=== PATIENT | female | born 1975 | race Caucasian/White ===

== ENCOUNTER 2017-11-22 03:22 | Observation (INO) ==
--- NOTE | 2017-11-22 03:58 | Emergency Department Note ---
Disposition Clinical Impression: Hypoxemia, Intractable pain Multiple fractures of ribs of left side Qualifiers: Encounter type: initial encounter Fracture type: closed Qualified Code(s): S22.42XA - Multiple fractures of ribs, left side, initial encounter for closed fracture Pneumonia Qualifiers: Pneumonia type: due to unspecified organism Laterality: left Lung location: unspecified part of lung Qualified Code(s): J18.9 - Pneumonia, unspecified organism Disposition: Admitted As Inpatient Condition: Fair Referrals: NONE,PCP [Primary Care Provider] - Forms: ED Satisfaction Letter Time of Disposition: 06:16 General Adult HPI - General Chief complaint: ED Fall Stated complaint: fall, hit chest, TEGAN Time Seen by Provider: 11/22/17 03:34 Source: family Limitations: other - History of Present Illness Pain Scale: 10 - Related Data Home Medications Medication Instructions Recorded Confirmed FLUoxetine HCl [Prozac] 40 mg PO DAILY 11/22/17 11/22/17 Neurontin 300 mg PO TID 11/22/17 11/22/17 traZODone [TraZODone] 50 mg PO HS 11/22/17 11/22/17 Allergies Allergy/AdvReac Type Severity Reaction Status Date / Time Sulfa (Sulfonamide AdvReac Rash Verified 11/22/17 04:42 Antibiotics) Past Medical History - Past Medical History Medical history: Reports: no medical history Psychiatric history: Reports: anxiety, depression [employer]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 - Social History Smoking Status: Current every day smoker Smokeless Tobacco Status: No Alcohol use: Reports: none Drug use: Reports: none Physical Exam - General Limitations: other General appearance: alert, in no apparent distress Course Vital Signs Temperature 99.1 F 11/22/17 03:27 Pulse Rate 117 11/22/17 03:27 Respiratory Rate 30 11/22/17 03:27 Blood Pressure 104/58 11/22/17 03:27 O2 Sat by Pulse Oximetry 82 11/22/17 03:27 Temperature 99.1 F 11/22/17 03:36 Pulse Rate 105 11/22/17 05:35 Respiratory Rate 24 11/22/17 05:35 Blood Pressure 101/62 11/22/17 05:35 O2 Sat by Pulse Oximetry 94 11/22/17 05:35 Oxygen Delivery Oxygen Delivery Room Air Critical Care Time Critical Care Time: Yes Total Critical Care Time: 35 Attestation: Critical care performed: Time is exclusive of separately billable procedures. Time includes: direct patient care, patient reassessment, coordination of patient care, interpretation of data (laboratory data, radiology data, and respiratory data), review of patient's medical records, medical consultation and documentation of patient care. Procedures included in critical care time: Procedures excluded from critical care time: Attestation Statement - Attestation Attestation: I examined this patient and my medical decision-making was reviewed with the Resident Physician. I agree with the documented findings, disposition and treatment plan as described except to the extent set forth below. Patient to the ED after a fall. Patient states she fell in her bedroom against a stool and hit the left anterior chest. She is having pain and trouble breathing. On examination she is holding her chest. Rapid shallow breathing. Diminished breath sounds bilaterally. Plan. Portable chest does not show an obvious pneumo. No obvious rib fracture. We will check CT CT shows multiple rib fractures. Patient requiring IV pain control. Satting in the 80s on room air. Patient is admitted. Chest X-Ray 11/22/17 03:34 IMPRESSION: Low lung volumes with basilar opacities, favored to reflect atelectasis although superimposed aspiration and pneumonia are considerations. Tiny effusions are possible. D/ / Francesco Bacon / Francesco Bacon Interpreting Provider: Francesco Bacon Chest CT 11/22/17 03:57 IMPRESSION: Left 2nd-5th rib fractures. No pneumothorax. Basilar predominant multifocal airspace disease, suspicious for pneumonia versus aspiration sequela. Diffuse mild wall inflammation. Mild emphysema. D/ / Francesco Bacon / Francesco Bacon Interpreting Provider: Francesco Bacon
--- NOTE | 2017-11-22 04:08 | Emergency Department Note ---
Disposition Clinical Impression: Hypoxemia, Intractable pain Multiple fractures of ribs of left side Qualifiers: Encounter type: initial encounter Fracture type: closed Qualified Code(s): S22.42XA - Multiple fractures of ribs, left side, initial encounter for closed fracture Pneumonia Qualifiers: Pneumonia type: due to unspecified organism Laterality: left Lung location: unspecified part of lung Qualified Code(s): J18.9 - Pneumonia, unspecified organism Disposition: Admitted As Inpatient Condition: Fair Referrals: NONE,PCP [Primary Care Provider] - Forms: ED Satisfaction Letter Time of Disposition: 06:11 Fall HPI - General Chief Complaint: ED Fall Stated Complaint: fall, hit chest, TEGAN Time Seen by Provider: 11/22/17 03:34 Source: family Mode of arrival: ambulatory Limitations: no limitations Nursing Notes Reviewed: Yes Vital Signs Reviewed: Yes - History of Present Illness HPI Narrative: Patient is a 42-year-old female who presents to [facility] ED status post fall around 7pm into a stool. States she has extreme left-sided chest wall pain after the fall. Feel short of breath. Denies any recent cough or cold. Admits to being a daily smoker but has never been diagnosed with COPD. No abdominal pain, nausea, vomiting, fever or chills. No problems with urination or bowel movements. No other traumatic injury. Denies being on any blood thinning medications. Patient states she fell because her legs gave out on her because of her back. Patient has had a long standing history of multiple back surgeries, prior pain infusion pump, etc. States this is nothing new for her. Pt Subjective Complaint: fall Onset (ago): hour(s) Fall From: standing Place Fall Occurred: home Loss of Consciousness: none Prolonged Down Time?: no Symptoms Prior to Fall: none Context: tripped/slipped Location of injury: chest Severity: severe Quality: stabbing Associated symptoms (after fall): Reports: chest pain, shortness of breath. Denies: weakness, abdominal pain, lightheaded - Related Data Home Medications Medication Instructions Recorded Confirmed FLUoxetine HCl [Prozac] 40 mg PO DAILY 11/22/17 11/22/17 Neurontin 300 mg PO TID 11/22/17 11/22/17 traZODone [TraZODone] 50 mg PO HS 11/22/17 11/22/17 Allergies Allergy/AdvReac Type Severity Reaction Status Date / Time Sulfa (Sulfonamide AdvReac Rash Verified 11/22/17 04:42 Antibiotics) All systems ED: reviewed and negative except as stated. 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 - Social History Smoking Status: Current every day smoker Alcohol use: Reports: none Drug use: Reports: none Physical Exam - General Limitations: other General appearance: alert, in no apparent distress - Head Head exam: atraumatic, normocephalic, normal inspection - Eye Eye exam: Present: normal appearance, EOMI - ENT ENT exam: normal exam, normal oropharynx, mucous membranes moist - Neck Neck exam: Present: normal inspection - Chest Chest inspection: Present: normal inspection, symmetric chest wall rise, tenderness (L chest wall pain with palpaiton) - Respiratory Respiratory exam: Present: normal lung sounds bilaterally - Cardiovascular Cardiovascular exam: Present: normal rhythm, tachycardia, normal heart sounds - Abdominal Exam Abdominal exam: Present: soft, Non-Tender. Absent: tenderness, distention, guarding, rebound, rigidity - Extremities Exam Extremities exam: Present: normal inspection, full ROM. Absent: tenderness, pedal edema - Back Exam Back exam: Present: normal inspection, full ROM. Absent: tenderness - Neurological Exam Neurological exam: Present: alert, oriented X3 - Psychiatric Psychiatric exam: Present: normal affect, normal mood - Skin Skin exam: Present: warm, dry, intact, normal color Course Course Narrative: Patient seen and examined. Fall with her chest against the stool. Chest x-ray ordered. Patient was initially reported to be 82% on room air in triage and she was immediately brought back here for evaluation. Upon examination, she had oxygenation that went up to 90% on room air with good waveform. Patient placed on 2 L nasal cannula oxygen and improved to 92-93% Motrin ordered for pain. - Reevaluation(s) Reevaluation #1: Upon examination of the chest x-ray, there are some blurred costophrenic angles and we are unable to tell if there may be a rib fracture or not. Due to her severe pain in shortness of breath, we will go ahead and get a CT of the chest. Time: 04:13 Reevaluation #2: CT of the chest shows multiple rib fractures left 2 through 5. No signs of pneumothorax. Patient's patient has been hypoxemic and is requiring oxygen, we will admit for pain control, pulmonary toilet. Patient is still having a lot of pain currently. We will give a sub-dissociative dose of ketamine. We will add some basic labs including a CBC and BMP. We will discuss with hospitalist for admission. Time: 05:56 Reevaluation #3: Discussed with hospitalist Dr. Max who has accepted patient for admission. Time: 06:10 Vital Signs Temperature 99.1 F 11/22/17 03:27 Pulse Rate 117 11/22/17 03:27 Respiratory Rate 30 11/22/17 03:27 Blood Pressure 104/58 11/22/17 03:27 O2 Sat by Pulse Oximetry 82 11/22/17 03:27 Temperature 99.1 F 11/22/17 03:36 Pulse Rate 105 11/22/17 05:35 Respiratory Rate 24 11/22/17 05:35 Blood Pressure 101/62 11/22/17 05:35 O2 Sat by Pulse Oximetry 94 11/22/17 05:35 Oxygen Delivery Oxygen Delivery Room Air Fall - Medical Records Medical records reviewed: Yes I reviewed the patient's medical records. - Lab Data Lab results reviewed: Yes I reviewed the patient's lab results. - Radiology Data Radiology results reviewed: Yes I reviewed the patient's radiology results. Chest X-Ray 11/22/17 03:34 IMPRESSION: Low lung volumes with basilar opacities, favored to reflect atelectasis although superimposed aspiration and pneumonia are considerations. Tiny effusions are possible. D/ / Francesco Bacon / Francesco Bacon Interpreting Provider: Francesco Bacon Chest CT 11/22/17 03:57 IMPRESSION: Left 2nd-5th rib fractures. No pneumothorax. Basilar predominant multifocal airspace disease, suspicious for pneumonia versus aspiration sequela. Diffuse mild wall inflammation. Mild emphysema. D/ / Francesco Bacon / Francesco Bacon Interpreting Provider: Francesco Bacon - EKG Data EKG attestation: Yes I reviewed and interpreted this EKG. EKG results narrative: EKG done at 333 shows sinus tachycardia with a rate of [address] elevation or depression. Normal axis. Poor wandering baseline EKG.
[2017-11-22] MEDS ORDERED: Ibuprofen 600 MG TABLET PO ONE (04:11)
[2017-11-22] MEDS ORDERED: *HR* OxyCODONE/APAP 5/325 TABLET PO ONE (04:32)
[2017-11-22] MEDS ORDERED: SODIUM CHLORIDE 0.9% IVPB ONE (05:52)
[2017-11-22] MEDS ORDERED: KETAMINE IVPB ONE (05:52)
[2017-11-22] MEDS ORDERED: Levofloxacin 750 MG/150 ML 750 MG/150 ML BAG IVPB ONE (05:53)
[2017-11-22] MEDS ORDERED: Naloxone 0.4 MG/ML INJ IVP PRN (07:52)
--- NOTE | 2017-11-22 07:59 | Internal Med History&Physical ---
Date of Encounter: 11/22/17 Time of Encounter: 07:56 Internal Medicine - H&P: HPI Chief complaint: left sided chest pain secondary to fall Admitted From: Emergency Dept Plans for Post Hospital Care: Home History of present illness: Ms. Schmidt is a 42 year old female who is a background history of for smoker and multiple degenerative joint disease. Patient had a multiple falls in the past. Patient also has a background history of a anxiety/depression Last evening around 7:00 patient was getting down from the stool and was not able to maintain her balance and noted that she had a fall. Initially patient was stranded secondary to the episode. Patient never had a loss of consciousness. Patient did not had any palpitations, dizziness, nausea, vomiting, any abnormal sensation. The pain on the left side of the chest was persistently getting worse and that was the reason patient came to the hospital for further evaluation. Workup in the emergency room: Patient was evaluated in the emergency room. Basic labs were drawn. X-ray chest was done. In view of the persistent left- sided pain, she underwent CT scan of the chest which showed multiple rib fractures on the left side from second to fifth. Reason for admission: Multiple rib fractures causing excruciating pain requires narcotics for pain control. Family history: Noncontributory Past Med Surg Social Fam HX - Past Medical History Medical history: no medical history Psychiatric history: anxiety, depression - Social History Smoking Status: Current every day smoker Packs per day: 1 Smokeless Tobacco Status: No Alcohol use: none Drug use: none Internal Medicine - H&P: Meds FLUoxetine HCl [Prozac] 40 mg PO DAILY 11/22/17 [History] Neurontin 300 mg PO TID 11/22/17 [History] traZODone [TraZODone] 50 mg PO HS 11/22/17 [History] 3 Allergy/AdvReac Type Severity Reaction Status Date / Time Sulfa (Sulfonamide AdvReac Rash Verified 11/22/17 04:42 Antibiotics) All Systems PM: A 10-system review of systems was performed and is negative for pertinent findings except as documented above in the HPI. - Constitutional Constitutional: no chills, no fever(s), no night sweats - EENT Eyes: no change in vision, no discharge, no pain, no photophobia Ears: no ear discharge, no ear pain, no tinnitus Nose, mouth and throat: no dysphagia, no nasal discharge, no neck pain, no sore throat - Cardiovascular Cardiovascular ROS IM: chest pain, no diaphoresis, no dyspnea, no lightheadedness, no palpitations, no syncope - Respiratory Respiratory: no cough, no dyspnea, no wheezing, no excessive phlegm production - Gastrointestinal Gastrointestinal: no abdominal pain, no diarrhea, no hematemesis, no hematochezia, no melena, no nausea, no vomiting - Genitourinary Genitourinary: no change in urinary stream, no dysuria, no flank pain, no hematuria - Musculoskeletal Musculoskeletal ROS IM: no numbness, no tingling - Integumentary Integumentary IM: no rash, no unusual bruising - Neurological Neurological ROS: no confusion, no convulsions, no focal weakness, no numbness, no tingling, no tremor(s) - Hematologic/Lymphatic Hematologic/Lymphatic: no easy bruising - Constitutional Vitals: Temp Pulse Resp BP Pulse Ox 99.1 F 105 16 91/64 94 11/22/17 03:36 11/22/17 05:35 11/22/17 06:49 11/22/17 06:49 11/22/17 05:35 General appearance: Present: A&O X 3, pleasant, no acute distress, answers questions appropriately - Head Head exam: Present: atraumatic, normocephalic - Eye Eye exam: Present: PERRL, conjuntiva pink, sclera anicteric Pupils: Present: PERRL - Neck Neck exam general surgery: Present: supple, trachea midline. Absent: lymphadenopathy - Respiratory Respiratory exam: Present: CTAB. Absent: accessory muscle use, rales, rhonchi, wheezes - Cardiovascular Cardiovascular exam: Present: RRR, +S1, +S2. Absent: diastolic murmur, gallop, rubs, systolic murmur - GI/Abdominal GI/Abdominal exam: Present: normal bowel sounds, soft, no peritoneal signs. Absent: distended, tenderness - Extremities Exam Extremities exam: Present: warm, radial pulses palpable and symmetrical. Absent : calf tenderness, cyanotic, pedal edema - Neurological Exam Neurological exam: Present: CN II-XII intact, oriented X3, no focal deficits. Absent: pronater drift, facial droop, speech deficit - Skin Skin exam: Present: dry, intact - Assessment and plan (1) Multiple fractures of ribs of left side Current Visit: Yes Status: Acute Assessment and plan: Patient is multiple rib fractures on the left side. She has a multiple rib fractures from 2 through 5th rib ( closed) Etiology for fall is previous multiple back surgeries leading to a imbalance. Patient had a previous pain pump which was removed. Plan: Admit as observation. Pain control as discussed below. This patient needs to go back to [facility] where 3 of the multiple back surgeries were performed. I explained this at length with the patient and she verbalized understanding. I examined this patient in her room and her significant other was present during the conversation. Patient gave permission to talk about her health in front of significant other. Plan of care discussed with the patient and family members. The verbalize understanding. Qualifiers: Encounter type: initial encounter Fracture type: closed Qualified Code(s) : S22.42XA - Multiple fractures of ribs, left side, initial encounter for closed fracture (2) Pneumonia Current Visit: Yes Status: Acute Assessment and plan: Patient does have some evidence of infiltrates on the chest x-ray. We will cover that with the by mouth levofloxacin. Close monitoring of the respiratory status. Qualifiers: Pneumonia type: due to unspecified organism Laterality: left Lung location: unspecified part of lung Qualified Code(s): J18.9 - Pneumonia, unspecified organism (3) Intractable pain Current Visit: Yes Status: Acute Assessment and plan: Patient is intractable pain. We will start with the tramadol which can cover her pain scale from 4-6. We will start her on a high-dose of OxyContin which will cover her pain from 7- 10. If in spite of this medication if her pain is not under control, then we will have to use when necessary intravenous opioids (4) DVT prophylaxis Current Visit: Yes Status: Acute Assessment and plan: Heparin Medical decision making: This patient has a moderate to severe risk of worsening in spite of being on appropriate medication due to the underlying chronic comorbid conditions. - Time Spent With Patient Total time spent is greater than 50% in coordination of care (as documented) at patient's floor/unit and/or counseling patient:
[2017-11-22 08:46] LABS: Basophils % 0.2 %; Eosinophils % 0.1 %; Hematocrit 39.6 % (35.3-44.9); Hemoglobin 12.8 g/dL (11.5-15.4); Immature Granulocytes % 0.4 % (0-4); Mean Corpuscular HGB Conc 32.3 g/dL (31.6-35.5); Mean Corpuscular Hemoglobin 28.8 pg (28.0-33.3); Mean Corpuscular Volume 89.2 fL (83.0-100.0); Mean Platelet Volume 11.2 fL (9.4-12.4); Monocytes # 0.8 K/mcL (0.0-1.3); Monocytes % 6.8 %; Neutrophils # 7.3 K/mcL (1.6-8.9); Platelet Count 118 K/mcL (140-400); Red Blood Count 4.44 M/mcL (3.82-4.97); Red Cell Distribution Width 13.1 % (11.5-14.5); Segmented Neutrophils % 65.5 %
[2017-11-22] MEDS: traMADol 50 MG TABLET PO PRN ×2 (09:09→17:33)
[2017-11-22] MEDS: Gabapentin 300 MG CAPSULE PO SCH ×3 (09:09→22:53)
[2017-11-22] MEDS: FLUoxetine 20 MG CAPSULE PO SCH (09:09)
[2017-11-22 09:11] LABS: Calcium 8.6 mg/dL (8.6-10.3); Potassium 3.4 mEq/L (3.5-5.1)
[2017-11-22] MEDS: Nicotine 14 MG PATCH.TD24 TD SCH (09:48)
[2017-11-22] MEDS: *HR* OxyCODONE Immed Rel 5 MG TABLET PO PRN ×2 (12:31→22:53)
[2017-11-22] MEDS: *HR* Heparin 5,000 UNIT/ML VIAL SQ SCH ×2 (14:43→22:53)
[2017-11-22] MEDS: traZODone 50 MG TABLET PO SCH (22:53)
[2017-11-23 01:59] LABS: Basophils # 0.1 K/mcL (0.0-0.2); Basophils % 0.8 %; Eosinophils # 0.2 K/mcL (0.0-0.6); Eosinophils % 2.3 %; Hematocrit 40.8 % (35.3-44.9); Hemoglobin 13.4 g/dL (11.5-15.4); Immature Granulocytes % 0.4 % (0-4); Lymphocytes # 2.8 K/mcL (0.6-4.6); Lymphocytes % 37.1 %; Mean Corpuscular HGB Conc 32.8 g/dL (31.6-35.5); Mean Corpuscular Hemoglobin 28.7 pg (28.0-33.3); Mean Corpuscular Volume 87.4 fL (83.0-100.0); Mean Platelet Volume 11.6 fL (9.4-12.4); Monocytes # 0.5 K/mcL (0.0-1.3); Monocytes % 6.8 %; Neutrophils # 3.9 K/mcL (1.6-8.9); Platelet Count 118 K/mcL (140-400); Red Blood Count 4.67 M/mcL (3.82-4.97); Red Cell Distribution Width 12.8 % (11.5-14.5); Segmented Neutrophils % 52.6 %
[2017-11-23 02:17] LABS: INR 1.2; Prothrombin Time 12.5 Seconds (9.4-12.1)
[2017-11-23 02:18] LABS: Alanine Aminotransferase 38 Units/L (7-52); Albumin 3.6 g/dL (3.5-5.7); Albumin/Globulin Ratio 1.3 (1.1-2.2); Alkaline Phosphatase 92 Units/L (34-104); Aspartate Amino Transferase 38 Units/L (13-39); BUN/Creatinine Ratio 13 (6-26); Bilirubin,Total 0.5 mg/dL (0.3-1.0); Blood Urea Nitrogen 12 mg/dL (6-20); Calcium 9.1 mg/dL (8.6-10.3); Carbon Dioxide 28 mEq/L (23-29); Chloride 106 mEq/L (98-107); Chol/HDL Ratio 4.2 (0-4.9); Cholesterol 171 mg/dL (< 200); Globulin 2.7 g/dL (2.4-3.5); Glucose 103 mg/dL (70-105); HDL Cholesterol 41 mg/dL (40-59); LDL Cholesterol,Calculated 116 mg/dL (0-99); Magnesium 1.7 mg/dL (1.6-2.6); Osmolality,Calculated 284 (280-300); Phosphorous 3.5 mg/dL (2.7-4.5); Potassium 3.5 mEq/L (3.5-5.1); Sodium 137 mEq/L (136-145); Total Protein 6.3 g/dL (6.4-8.9); Triglycerides 71 mg/dL (< 150); eGFR For African Americans > 60 (> 60); eGFR For Non-African Americans > 60 (> 60)
[2017-11-23] MEDS: *HR* OxyCODONE Immed Rel 5 MG TABLET PO PRN ×3 (05:08→17:41)
[2017-11-23] MEDS: *HR* Heparin 5,000 UNIT/ML VIAL SQ SCH ×3 (05:09→22:57)
[2017-11-23] MEDS: traMADol 50 MG TABLET PO PRN ×3 (08:38→21:06)
[2017-11-23] MEDS: FLUoxetine 20 MG CAPSULE PO SCH (08:38)
[2017-11-23] MEDS: Gabapentin 300 MG CAPSULE PO SCH ×3 (08:38→22:57)
[2017-11-23] MEDS: levoFLOXacin 750 MG TABLET PO SCH (08:38)
[2017-11-23] MEDS: Nicotine 14 MG PATCH.TD24 TD SCH (08:38)
--- NOTE | 2017-11-23 17:13 | Internal Med Progress Note ---
Date of Encounter: 11/23/17 Time of Encounter: 17:12 - Assessment and plan (1) Multiple fractures of ribs of left side Current Visit: Yes Status: Acute Assessment and plan: - Status post fall, resulted in left multiple rib fracture (II-V). - No pneumothorax. mild respiratory distress due to pain. - Pain control. May consult orthopedics tomorrow if indicated. Qualifiers: Encounter type: initial encounter Fracture type: closed Qualified Code(s) : S22.42XA - Multiple fractures of ribs, left side, initial encounter for closed fracture (2) Pneumonia Current Visit: Yes Status: Acute Assessment and plan: - Continue oral Levaquin. Qualifiers: Pneumonia type: due to unspecified organism Laterality: left Lung location: unspecified part of lung Qualified Code(s): J18.9 - Pneumonia, unspecified organism (3) Intractable pain Current Visit: Yes Status: Acute Assessment and plan: - Continue pain control. (4) DVT prophylaxis Current Visit: Yes Status: Acute Assessment and plan: Heparin - Time Spent With Patient Total time spent is greater than 50% in coordination of care (as documented) at patient's floor/unit and/or counseling patient: Greater than 35 minutes - Subjective Interval history: Patient reported severe left chest wall pain. - Constitutional Vitals: Temp Pulse Resp BP Pulse Ox 98.8 F 96 16 110/71 95 11/23/17 16:00 11/23/17 16:00 11/23/17 16:00 11/23/17 16:00 11/23/17 16:00 General appearance: Present: A&O X 3, pleasant, no acute distress, answers questions appropriately Exam: PHYSICAL EXAMINATION: GENERAL APPEARANCE: The patient is alert, oriented and in no acute distress. HEENT: Head is normocephalic. The sinuses are nontender. Pupils are equal and reactive. The nares are patent. Oropharynx clear without lesions. NECK: Supple without lymphadenopathy. HEART: Regular rate and rhythm. LUNGS: No crackles or wheezes are heard. ABDOMEN: Soft, nontender, nondistended with good bowel sounds heard. Inguinal area is normal. EXTREMITIES: Without cyanosis, clubbing or edema. NEUROLOGICAL: Gross nonfocal. SKIN: Warm and dry without any rash. Internal Medicine: Result - Labs CBC & Chem 7: 11/23/17 01:23 11/23/17 01:23 Labs: Short CBC 11/23/17 Range/Units 01:23 WBC 7.5 (4.3-11.1) K/mcL Hgb 13.4 (11.5-15.4) g/dL Hct 40.8 (35.3-44.9) % Plt Count 118 L (140-400) K/mcL Neutrophils # 3.9 (1.6-8.9) K/mcL BMP 11/23/17 01:23 Sodium 137 Potassium 3.5 Chloride 106 Carbon Dioxide 28 BUN 12 Creatinine 0.96 Glucose 103 Calcium 9.1 Cardiac Enzymes 11/22/17 Range/Units 19:45 Troponin I < 0.03 (< 0.04) ng/mL Liver Function 11/23/17 Range/Units 01:23 Total Bilirubin 0.5 (0.3-1.0) mg/dL AST 38 (13-39) Units/L ALT 38 (7-52) Units/L Alkaline Phosphatase 92 (34-104) Units/L Albumin 3.6 (3.5-5.7) g/dL - ABG Interpretation ABG results: PT/INR, D-dimer PT 12.5 Seconds (9.4-12.1) H 11/23/17 01:23 Consult Discharge Plan - Plan Referrals: NONE,PCP [Primary Care Provider] -
[2017-11-23] MEDS: traZODone 50 MG TABLET PO SCH (22:57)
[2017-11-24] MEDS: *HR* OxyCODONE Immed Rel 5 MG TABLET PO PRN ×4 (00:08→20:37)
[2017-11-24 03:12] LABS: Hematocrit 39.8 % (35.3-44.9); Hemoglobin 13.2 g/dL (11.5-15.4); Immature Platelets 7.3 % (1.1-6.1); Mean Corpuscular HGB Conc 33.2 g/dL (31.6-35.5); Mean Corpuscular Hemoglobin 28.9 pg (28.0-33.3); Mean Corpuscular Volume 87.3 fL (83.0-100.0); Mean Platelet Volume 11.3 fL (9.4-12.4); Red Blood Count 4.56 M/mcL (3.82-4.97)
[2017-11-24 03:14] LABS: BUN/Creatinine Ratio 8 (6-26); Blood Urea Nitrogen 6 mg/dL (6-20); Calcium 9.2 mg/dL (8.6-10.3); Carbon Dioxide 29 mEq/L (23-29); Chloride 106 mEq/L (98-107); Glucose 95 mg/dL (70-105); Osmolality,Calculated 283 (280-300); Potassium 3.8 mEq/L (3.5-5.1); Sodium 138 mEq/L (136-145); eGFR For African Americans > 60 (> 60); eGFR For Non-African Americans > 60 (> 60)
[2017-11-24] MEDS: Nicotine 14 MG PATCH.TD24 TD SCH (08:03)
[2017-11-24] MEDS: FLUoxetine 20 MG CAPSULE PO SCH (08:03)
[2017-11-24] MEDS: Gabapentin 300 MG CAPSULE PO SCH ×3 (08:03→22:12)
[2017-11-24] MEDS: levoFLOXacin 750 MG TABLET PO SCH (08:03)
[2017-11-24] MEDS: *HR* Heparin 5,000 UNIT/ML VIAL SQ SCH ×3 (08:04→22:12)
[2017-11-24] MEDS: traMADol 50 MG TABLET PO PRN ×2 (10:48→16:35)
--- NOTE | 2017-11-24 15:09 | Internal Med Progress Note ---
Date of Encounter: 11/24/17 Time of Encounter: 15:07 - Assessment and plan (1) Multiple fractures of ribs of left side Current Visit: Yes Status: Acute Assessment and plan: still in lots of pain will consult ortho and pain mannagement Qualifiers: Encounter type: initial encounter Fracture type: closed Qualified Code(s) : S22.42XA - Multiple fractures of ribs, left side, initial encounter for closed fracture (2) Pneumonia Current Visit: Yes Status: Acute Assessment and plan: started on levoquin Qualifiers: Pneumonia type: due to unspecified organism Laterality: left Lung location: unspecified part of lung Qualified Code(s): J18.9 - Pneumonia, unspecified organism (3) Intractable pain Current Visit: Yes Status: Acute Assessment and plan: from rib fracture - Time Spent With Patient Total time spent is greater than 50% in coordination of care (as documented) at patient's floor/unit and/or counseling patient: - Subjective Interval history: patient admitted with multiple rib fractures following fall no pneumothorax says she is still in lots of pain no acute sob - Constitutional Vitals: Temp Pulse Resp BP Pulse Ox 97.9 F 94 18 120/87 93 11/24/17 14:55 11/24/17 14:55 11/24/17 14:55 11/24/17 14:55 11/24/17 14:55 General appearance: Present: A&O X 3, pleasant, no acute distress, answers questions appropriately - Head Head exam: Present: atraumatic, normocephalic - Eye Eye exam: Present: PERRL, conjuntiva pink, sclera anicteric Pupils: Present: PERRL - Neck Neck exam general surgery: Present: supple, trachea midline. Absent: lymphadenopathy - Respiratory Respiratory exam: Present: CTAB. Absent: accessory muscle use, rales, rhonchi, wheezes - Cardiovascular Cardiovascular exam: Present: RRR, +S1, +S2. Absent: diastolic murmur, gallop, rubs, systolic murmur - GI/Abdominal GI/Abdominal exam: Present: normal bowel sounds, soft, no peritoneal signs. Absent: distended, tenderness - Extremities Exam Extremities exam: Present: warm, radial pulses palpable and symmetrical. Absent : calf tenderness, cyanotic, pedal edema - Neurological Exam Neurological exam: Present: CN II-XII intact, oriented X3, no focal deficits. Absent: pronater drift, facial droop, speech deficit - Skin Skin exam: Present: dry, intact Internal Medicine: Result - Labs CBC & Chem 7: 11/24/17 02:08 11/24/17 02:08 Labs: Short CBC 11/24/17 Range/Units 02:08 WBC 6.1 (4.3-11.1) K/mcL Hgb 13.2 (11.5-15.4) g/dL Hct 39.8 (35.3-44.9) % Plt Count 139 L (140-400) K/mcL BMP 11/24/17 02:08 Sodium 138 Potassium 3.8 Chloride 106 Carbon Dioxide 29 BUN 6 Creatinine 0.71 Glucose 95 Calcium 9.2 - ABG Interpretation ABG results: PT/INR, D-dimer PT 12.5 Seconds (9.4-12.1) H 11/23/17 01:23 Consult Discharge Plan - Plan Referrals: NONE,PCP [Primary Care Provider] -
[2017-11-24] MEDS: traZODone 50 MG TABLET PO SCH (22:12)
[2017-11-25] MEDS: *HR* OxyCODONE Immed Rel 5 MG TABLET PO PRN ×4 (02:34→21:11)
[2017-11-25] MEDS: *HR* Heparin 5,000 UNIT/ML VIAL SQ SCH ×3 (05:44→20:25)
[2017-11-25] MEDS: traMADol 50 MG TABLET PO PRN ×3 (05:47→19:27)
[2017-11-25] MEDS: Nicotine 14 MG PATCH.TD24 TD SCH (08:47)
[2017-11-25] MEDS: FLUoxetine 20 MG CAPSULE PO SCH (08:48)
[2017-11-25] MEDS: levoFLOXacin 750 MG TABLET PO SCH (08:49)
[2017-11-25] MEDS: Gabapentin 300 MG CAPSULE PO SCH ×3 (08:49→20:25)
--- NOTE | 2017-11-25 12:51 | Internal Med Progress Note ---
Date of Encounter: 11/25/17 Time of Encounter: 12:49 - Assessment and plan (1) Multiple fractures of ribs of left side Current Visit: Yes Status: Acute Assessment and plan: no pneumothorax ortho evaluation pending Qualifiers: Encounter type: initial encounter Fracture type: closed Qualified Code(s) : S22.42XA - Multiple fractures of ribs, left side, initial encounter for closed fracture (2) Pneumonia Current Visit: Yes Status: Acute Assessment and plan: continue iv antibiotics Qualifiers: Pneumonia type: due to unspecified organism Laterality: left Lung location: unspecified part of lung Qualified Code(s): J18.9 - Pneumonia, unspecified organism (3) Intractable pain Current Visit: Yes Status: Acute Assessment and plan: some improvement pain management c onsult and evaluation pending - Time Spent With Patient Total time spent is greater than 50% in coordination of care (as documented) at patient's floor/unit and/or counseling patient: - Subjective Interval history: patient admitted with multiple rib fractures following fall no pneumothorax says she is still in lots of pain no acute sob pateint says pain is better ortho and pain management consult pending - Constitutional Vitals: Temp Pulse Resp BP Pulse Ox 98.3 F 76 18 120/84 95 11/25/17 10:39 11/25/17 10:39 11/25/17 10:39 11/25/17 10:39 11/25/17 10:39 General appearance: Present: A&O X 3, pleasant, no acute distress, answers questions appropriately - Head Head exam: Present: atraumatic, normocephalic - Eye Eye exam: Present: PERRL, conjuntiva pink, sclera anicteric Pupils: Present: PERRL - Neck Neck exam general surgery: Present: supple, trachea midline. Absent: lymphadenopathy - Respiratory Respiratory exam: Present: CTAB. Absent: accessory muscle use, rales, rhonchi, wheezes - Cardiovascular Cardiovascular exam: Present: RRR, +S1, +S2. Absent: diastolic murmur, gallop, rubs, systolic murmur - GI/Abdominal GI/Abdominal exam: Present: normal bowel sounds, soft, no peritoneal signs. Absent: distended, tenderness Internal Medicine: Result - Labs CBC & Chem 7: 11/24/17 02:08 11/24/17 02:08 - ABG Interpretation ABG results: PT/INR, D-dimer PT 12.5 Seconds (9.4-12.1) H 11/23/17 01:23 Consult Discharge Plan - Plan Referrals: NONE,PCP [Primary Care Provider] -
--- NOTE | 2017-11-25 15:54 | Electrocardiograph Report ---
[place] [id number] Test Date: 2017-11-22 Pat Name: Isabel Schmidt Department: 102 Room: [facility] Gender: F [employer]: : 1975 Requested By: Lenore See Order Number: [id number] Reading MD: Walker Garcia Measurements Intervals [place] Rate: 114 P: 70 CT: 123 QRS: 51 QRSD: 78 T: 20 QT: 308 QTc: 376 Interpretive Statements SINUS TACHYCARDIA Electronically Signed On 11-25-2017 15:52:54 EDT by Walker Garcia
[2017-11-25] MEDS: traZODone 50 MG TABLET PO SCH (20:24)
[2017-11-26] MEDS: *HR* OxyCODONE Immed Rel 5 MG TABLET PO PRN ×2 (03:54→10:43)
[2017-11-26] MEDS: *HR* Heparin 5,000 UNIT/ML VIAL SQ SCH (05:55)
[2017-11-26] MEDS: traMADol 50 MG TABLET PO PRN ×2 (05:56→12:01)
--- NOTE | 2017-11-26 08:29 | Internal Med Progress Note ---
Date of Encounter: 11/26/17 Time of Encounter: 08:00 - Assessment and plan (1) Multiple fractures of ribs of left side Status: Acute Assessment and plan: - Status post fall, resulted in left multiple rib fracture (II-V) with mild displacement of rib fractures 2-4. General surgery consulted. will follow recs and plan for discharge if no acute intervention. Qualifiers: Encounter type: initial encounter Fracture type: closed Qualified Code(s) : S22.42XA - Multiple fractures of ribs, left side, initial encounter for closed fracture (2) Pneumonia Status: Acute Assessment and plan: - Continue oral Levaquin. Can be discharge on course of levaquin Qualifiers: Pneumonia type: due to unspecified organism Laterality: left Lung location: unspecified part of lung Qualified Code(s): J18.9 - Pneumonia, unspecified organism (3) Intractable pain Status: Acute Assessment and plan: - Continue pain control. (4) DVT prophylaxis Status: Acute Assessment and plan: Heparin - Time Spent With Patient Total time spent is greater than 50% in coordination of care (as documented) at patient's floor/unit and/or counseling patient: - Subjective Interval history: No acute events overnight - Constitutional Vitals: Temp Pulse Resp BP Pulse Ox 98.5 F 86 16 127/88 91 11/26/17 06:16 11/26/17 06:16 11/26/17 06:16 11/26/17 06:16 11/26/17 06:16 General appearance: Present: A&O X 3, pleasant, no acute distress, answers questions appropriately - Head Head exam: Present: atraumatic, normocephalic - Eye Eye exam: Present: PERRL, conjuntiva pink, sclera anicteric Pupils: Present: PERRL - Neck Neck exam general surgery: Present: supple, trachea midline. Absent: lymphadenopathy - Respiratory Respiratory exam: Present: CTAB. Absent: accessory muscle use, rales, rhonchi, wheezes - Cardiovascular Cardiovascular exam: Present: RRR, +S1, +S2. Absent: diastolic murmur, gallop, rubs, systolic murmur - GI/Abdominal GI/Abdominal exam: Present: normal bowel sounds, soft, no peritoneal signs. Absent: distended, tenderness - Extremities Exam Extremities exam: Present: warm, radial pulses palpable and symmetrical. Absent : calf tenderness, cyanotic, pedal edema - Neurological Exam Neurological exam: Present: CN II-XII intact, oriented X3, no focal deficits. Absent: pronater drift, facial droop, speech deficit - Skin Skin exam: Present: dry, intact Internal Medicine: Result - Labs CBC & Chem 7: 11/24/17 02:08 11/24/17 02:08 - ABG Interpretation ABG results: PT/INR, D-dimer PT 12.5 Seconds (9.4-12.1) H 11/23/17 01:23 Consult Discharge Plan - Plan Additional Instructions: Follow-up appointments: If there is not an appointment listed below, please call your physician and schedule a follow-up appointment. If you have congestive heart failure and your symptoms return, make an appointment with your physician. Medication List: Carry an up to date list of medications you are taking at all time. We have given you an updated medication list including any new medications that you have been prescribed. Please provide that list to your primary provider Symptoms: If your condition changes or you experience any of the following symptoms, notify your physician immediately: Unusual or worsening pain, fever, persistent nausea and vomiting, bleeding, increase in swelling (especially in your legs), sudden weight gain, extreme dizziness, chest pain, increased drainage or redness from a wound or incision. Go to the emergency department if you experience a problem with breathing. Weights: If you have a history of swelling or shortness of breath, weigh yourself daily and notify your physician if you have a weight gain of two or more pounds in one day or 5 or more pounds in a week. If you experience any of the warning signs for stroke: Sudden numbness or weakness of the face, arm or leg; especially on one side of the body, sudden confusion, trouble speaking or understanding, sudden trouble seeing in one or both eyes, sudden trouble walking, dizziness, loss of balance or coordination, sudden sever headache with no cause; Call 911 or go to the emergency room. Stroke is a medical emergency. Some risk factors for stroke: Age, cigarette smoking, diabetes, excessive alcohol consumption, family history , high blood pressure, overweight, physical inactivity, prior stroke, heart attack, diagnosis of carotid artery stenosis or other artery disease. If you smoke, STOP: Smoking or tobacco use significantly increases your risk of heart and lung disease. Your chance of disease greatly increases if you continue to smoke. For more information, call the [place] tobacco quit line for smoking cessation QUIT-NOW ( ) Referrals: NONE,PCP [Primary Care Provider] - Prescriptions: OxyCODONE Immed Rel [Roxicodone 5 MG] 10 mg PO Q6HR PRN 7 Days #30 tablet PRN Reason: Severe Pain levoFLOXacin [Levaquin] 750 mg PO DAILY #5 tablet Nicotine Patch [Nicoderm] 14 mg TD DAILY #30 patch.[email or web address]
[2017-11-26] MEDS: Gabapentin 300 MG CAPSULE PO SCH (09:07)
[2017-11-26] MEDS: Nicotine 14 MG PATCH.TD24 TD SCH (09:07)
[2017-11-26] MEDS: FLUoxetine 20 MG CAPSULE PO SCH (09:07)
[2017-11-26] MEDS: levoFLOXacin 750 MG TABLET PO SCH (09:07)
[2017-11-26] MEDS ORDERED: Isovue-370 500 ML INFUS..BTL IV ONE (09:09)
--- NOTE | 2017-11-26 09:19 | General Surgery Consult Note ---
Date of Encounter: 11/26/17 Time of Encounter: 09:15 Assessment and Plan (1) Multiple fractures of ribs, bilateral, sequela Current Visit: Yes Status: Acute 42F s/p fall with bilateral rib fractures, pulmonary contusions, and subsequent pain; patient has less than perfect lung function I would assume, but not enough that she requires oxygen at home; she still has pain with breathing and coughing. IS level is about 750cc pain control oxycodone q6hrs PRN tramadol 50mg q8hrs tylenol scheduled [id number] alternating with ibuprofen 600mg q6hrs flexeril 10mg TID aggressive pulm toiletinbreaths/hr while awake; goal of at least 1000 ambulate at least 4 times a day repeat chest CT if chest CT is unchanged or improved, then okay with discharge as long as her pain is adequately controlled History of Present Illness Consult date: 11/26/17 Reason for consult: other (rib fractures) History of present illness: 42F h/o anxiety and depression, current smoker (30+ pack year history), likely with COPD, prior back surgeries with prior falls now admitted for recent fall. patient states that 'her legs gave out' and she landed on a stool right on her chest. No associated dizziness, lightheadedness, chest pain, nor shortness of breath prior to fall. Three hours after her fall she came to the hospital for further evaluation due to worsening pain. Reportedly her oxygen saturations were at 82% upon arrival. Currently her saturations are at 91%. she is currently on room air. A CT scan was obtained, which was reviewed and interpreted by me, demonstrated bilateral rib fractures, pulmonary contusions. No pneumothorax nor effusion. Past Med Surg Social Fam HX - Past Medical History Medical history: no medical history Psychiatric history: anxiety, depression - Past Surgical History Surgical History: other (multiple back surgeries including surgery on L4, L5) - Social History Smoking Status: Current every day smoker Packs per day: 1 Smokeless Tobacco Status: No Alcohol use: none Drug use: none - Additional Family History Additional family history: non contributory Medications and Allergies FLUoxetine HCl [Prozac] 60 mg PO DAILY 11/22/17 [History] hydrOXYzine HCl [Hydroxyzine HCl] 50 - 100 mg PO Q6H PRN 11/22/17 [History] traZODone [TraZODone] 50 mg PO HS 11/22/17 [History] 3 Allergy/AdvReac Type Severity Reaction Status Date / Time Sulfa (Sulfonamide AdvReac Rash Verified 11/22/17 04:42 Antibiotics) Review of Systems All systems PM: The remainder of the systems were reviewed and are negative General Surgery Exam Initial Vital Signs Temp Pulse Resp BP Pulse Ox 99.1 F 117 30 104/58 82 11/22/17 03:27 11/22/17 03:27 11/22/17 03:27 11/22/17 03:27 11/22/17 03:27 - General physical appearance well developed, no distress - Eyes normal ocular movement - ENT normocephalic - Neck no lymphadectomy - Respiratory normal expansion, normal respiratory effort (shallow breathing due to pain) - Cardiovascular Cardiovascular exam: Present: RRR - Abdomen Abdomen general surgery: Present: soft - Integumentary Integumentary general surgery: Present: warm and dry - Neurologic Present: CN 2-12 grossly intact - Musculoskeletal Present: normal posture - Psychiatric Psychiatric general surgery: Present: A&Ox3 Exam Initial Vital Signs Temp Pulse Resp BP Pulse Ox 99.1 F 117 30 104/58 82 11/22/17 03:27 11/22/17 03:27 11/22/17 03:27 11/22/17 03:27 11/22/17 03:27 Results - Labs 11/24/17 02:08 11/24/17 02:08 Abnormal lab results Plt Count 139 K/mcL (140-400) L 11/24/17 02:08 Immature Plt Fraction 7.3 % (1.1-6.1) H 11/24/17 02:08 PT 12.5 Seconds (9.4-12.1) H 11/23/17 01:23 Serum Total Protein 6.3 g/dL (6.4-8.9) L 11/23/17 01:23 LDL Cholesterol, Calc 116 mg/dL (0-99) H 11/23/17 01:23 All other labs normal. - Imaging CT scan - chest: report reviewed, image reviewed Consult Discharge Plan - Plan Referrals: NONE,PCP [Primary Care Provider] -
--- NOTE | 2017-11-26 13:51 | Discharge Summary ---
Date of Encounter: 11/26/17 Time of Encounter: 13:00 - Discharge Diagnosis (1) Multiple fractures of ribs of left side Priority: Primary Status: Acute Assessment and Plan: - Status post fall, resulted in left multiple rib fracture (II-V) with mild displacement of rib fractures 2-4. She was managed with pain control as needed. seen by general surgery who recommended repeat CT to r/o pnuemothorax. Repeat CT showed evidence of lung collapse likely secondary to pneumonia with no evidence of pneumothorax. Oxygen sats were WNL and patient expressed a desire to be discharged after CT findigns were explained to her. She was seen by surgery who determined no acute surgical intervention on review of follow up CT. She was discharged on oral antibiotics and incentive spirometry Qualifiers: Encounter type: initial encounter Fracture type: closed Qualified Code(s) : S22.42XA - Multiple fractures of ribs, left side, initial encounter for closed fracture (2) Pneumonia Priority: Secondary Status: Acute Assessment and Plan: - Continue oral Levaquin. She will be discharged on course of levaquin for her pneumonia Qualifiers: Pneumonia type: due to unspecified organism Laterality: left Lung location: unspecified part of lung Qualified Code(s): J18.9 - Pneumonia, unspecified organism (3) Intractable pain Priority: Secondary Status: Acute Assessment and Plan: - Stable. Continue pain control. (4) DVT prophylaxis Priority: Primary Status: Acute Assessment and Plan: Heparin Hospital course: Ms. Schmidt is a 42 year old female - Time Spent with Patient Total time spent providing and/or coordinating discharge services: - Discharge Medications Prescriptions: OxyCODONE Immed Rel [Roxicodone 5 MG] 10 mg PO Q6HR PRN 7 Days #30 tablet PRN Reason: Severe Pain levoFLOXacin [Levaquin] 750 mg PO DAILY #5 tablet Nicotine Patch [Nicoderm] 14 mg TD DAILY #30 patch.td24 Home Medications: FLUoxetine HCl [Prozac] 60 mg PO DAILY 11/22/17 [History] hydrOXYzine HCl [Hydroxyzine HCl] 50 - 100 mg PO Q6H PRN 11/22/17 [History] traZODone [TraZODone] 50 mg PO HS 11/22/17 [History] Nicotine Patch [Nicoderm] 14 mg TD DAILY #30 patch.td24 11/26/17 [Rx] OxyCODONE Immed Rel [Roxicodone 5 MG] 10 mg PO Q6HR PRN 7 Days #30 tablet [Rx] levoFLOXacin [Levaquin] 750 mg PO DAILY #5 tablet 11/26/17 [Rx] Allergies/Adverse Reactions: 3 Allergy/AdvReac Type Severity Reaction Status Date / Time Sulfa (Sulfonamide AdvReac Rash Verified 11/22/17 04:42 Antibiotics) Date of admission: 11/22/17 06:42 Primary care physician: PCP NONE Consults: 11/24/17 15:11 Consult to Orthopedic Surgery [CONS] Routine Consulting Provider: [facility] Reason for Consult: multiple rib fracture with intractible pain Call Completed: No 11/24/17 15:12 Consult to Pain Management [CONS] Routine Consulting Provider: [facility] Reason for Consult: intractible pain from multiple rib fractures Call Completed: No 11/26/17 08:14 Consult to Surgery [CONS] Routine Consulting Provider: [facility] Reason for Consult: MUltiple rib fractures on left side with mild displacement Call Completed: Yes - Constitutional Vitals: Temp Pulse Resp BP Pulse Ox 98.4 F 80 18 112/77 93 11/26/17 10:28 11/26/17 10:28 11/26/17 10:28 11/26/17 10:28 11/26/17 10:28 General appearance: Present: A&O X 3, pleasant, no acute distress, answers questions appropriately - Head Head exam: Present: atraumatic, normocephalic - Eye Eye exam: Present: PERRL, conjuntiva pink, sclera anicteric Pupils: Present: PERRL - Neck Neck exam general surgery: Present: supple, trachea midline. Absent: lymphadenopathy - Respiratory Respiratory exam: Present: CTAB. Absent: accessory muscle use, rales, rhonchi, wheezes - Cardiovascular Cardiovascular exam: Present: RRR, +S1, +S2. Absent: diastolic murmur, gallop, rubs, systolic murmur - GI/Abdominal GI/Abdominal exam: Present: normal bowel sounds, soft, no peritoneal signs. Absent: distended, tenderness - Extremities Exam Extremities exam: Present: warm, radial pulses palpable and symmetrical. Absent : calf tenderness, cyanotic, pedal edema - Neurological Exam Neurological exam: Present: CN II-XII intact, oriented X3, no focal deficits. Absent: pronater drift, facial droop, speech deficit - Skin Skin exam: Present: dry, intact - Patient Status Disposition: Home, Self-Care Condition: Fair - Discharge Instructions Follow Up With: NONE,PCP [Primary Care Provider] - Additional Instructions: Follow-up appointments: If there is not an appointment listed below, please call your physician and schedule a follow-up appointment. If you have congestive heart failure and your symptoms return, make an appointment with your physician. Medication List: Carry an up to date list of medications you are taking at all time. We have given you an updated medication list including any new medications that you have been prescribed. Please provide that list to your primary provider Symptoms: If your condition changes or you experience any of the following symptoms, notify your physician immediately: Unusual or worsening pain, fever, persistent nausea and vomiting, bleeding, increase in swelling (especially in your legs), sudden weight gain, extreme dizziness, chest pain, increased drainage or redness from a wound or incision. Go to the emergency department if you experience a problem with breathing. Weights: If you have a history of swelling or shortness of breath, weigh yourself daily and notify your physician if you have a weight gain of two or more pounds in one day or 5 or more pounds in a week. If you experience any of the warning signs for stroke: Sudden numbness or weakness of the face, arm or leg; especially on one side of the body, sudden confusion, trouble speaking or understanding, sudden trouble seeing in one or both eyes, sudden trouble walking, dizziness, loss of balance or coordination, sudden sever headache with no cause; Call 911 or go to the emergency room. Stroke is a medical emergency. Some risk factors for stroke: Age, cigarette smoking, diabetes, excessive alcohol consumption, family history , high blood pressure, overweight, physical inactivity, prior stroke, heart attack, diagnosis of carotid artery stenosis or other artery disease. If you smoke, STOP: Smoking or tobacco use significantly increases your risk of heart and lung disease. Your chance of disease greatly increases if you continue to smoke. For more information, call the [place] tobacco quit line for smoking cessation -NOW ( )
[2017-11-26 14:27] VITALS: BP 96/61
== END 2017-11-26 15:26 | disposition home or self-care (01) ==
LOC: 3NENU 03:22 → EMEROO 03:22 → 3NENU 07:20
PROVIDERS: ADMIT Internal Medicine; ATTEND Internal Medicine